=== PATIENT | male | born 2005 | race Caucasian/White ===

== ENCOUNTER 2025-03-24 14:11 | Outpatient (REF) | payer OTHER, SELFPAY ==
[2025-03-24 14:48] LABS: Chloride* 101 mmol/L (96-114); Potassium* 3.9 mmol/L (3.6-5.1); Sodium* 138 mmol/L (135-149)
[2025-03-24 14:51] LABS: Anion Gap 9 mEq/L (7-15); Blood Urea Nitrogen* 11 mg/dL (5-24); Carbon Dioxide* 28 mmol/L (20-32); Creatinine* 1.0 mg/dL (0.6-1.2); Estimated Glomerular Filt Rate 111 ml/min
[2025-03-24 14:52] LABS: Calcium* 9.6 mg/dL (8.7-10.8); Glucose* 104 mg/dL (60-115)
== END 2025-03-24 14:12 | disposition home or self-care (01) ==
LOC: NPINS 14:11
PROVIDERS: Visit Provider Pediatrics
DX: I15.8 Other secondary hypertension (principal)
CPT/HCPCS: 36415; 80048